=== PATIENT | male | born 1970 | race Caucasian/White ===

== ENCOUNTER 2023-11-18 04:25 | Emergency (ER) | payer OTHER, SELFPAY ==
[2023-11-18 04:26] VITALS: BP 143/89; PULSE 112; RESP 20; TEMP 36.8; O2SAT 95; BMI 21.2
--- NOTE | 2023-11-18 04:36 | PC.NURSE ---
on phone with pt's mother
--- NOTE | 2023-11-18 05:47 | PC.NURSE ---
SAMEER Kevin faxed [phone] form to [facility]
--- NOTE | 2023-11-18 06:20 | PC.NURSE ---
[phone]
--- NOTE | 2023-11-18 06:29 | PC.NURSE ---
contact [facility] to verify that they received [phone]. they stated emili are passing paperwork to the [facility] and we will a call shortly
[2023-11-18 06:30] VITALS: BP 159/96; PULSE 101; RESP 18; O2SAT 96
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
--- NOTE | 2023-11-18 06:59 | PC.NURSE ---
speaking with VASU @ [facility]
[2023-11-18 07:00] VITALS: BP 149/96; PULSE 102; RESP 18; O2SAT 96
--- NOTE | 2023-11-18 07:09 | PC.NURSE ---
pt is speaking [facility] via [facility]
[2023-11-18 07:30] VITALS: BP 147/106; PULSE 100; RESP 20; O2SAT 96
--- NOTE | 2023-11-18 08:33 | PC.NURSE ---
Rounded on pt to see if they had any needs. No needs at this time
[2023-11-18 09:01] VITALS: BP 149/96; PULSE 101; RESP 18; TEMP 36.8; O2SAT 96
== END 2023-11-18 09:03 | disposition still patient (30) ==
PROVIDERS: Emergency Provider Emergency Medicine
DX: F25.9 Schizoaffective disorder, unspecified (principal); F10.90 Alcohol use, unspecified, uncomplicated; F17.200 Nicotine dependence, unspecified, uncomplicated
CPT/HCPCS: 99285